=== PATIENT | female | born 1995 ===

== ENCOUNTER 2018-01-08 23:35 | Emergency (ER) | payer SELFPAY ==
--- NOTE | 2018-01-09 00:12 | C.PDOC ---
History Of Present Illness 22 year old female presents to the ED c/o pain to the back of her head, lower back, right arm and right leg s/o falling at a [employer]. Patient states he was helped up by a friend and went home after she fell, tried taking Advil and Tyleno, without relief. Patient states pain was persistent which prompted the visit to the ED. Patient denies LOC, visual changes, nausea, vomit, dizziness, weakness, numbness, bowel incontinence, saddle anesthesia. - HPI Time Seen by Provider: 01/08/18 23:50 Chief Complaint (Nursing): Trauma History Per: Patient History/Exam Limitations: no limitations Onset/Duration Of Symptoms: Hrs Injury Occurred (Timing): Just Before Arrival Location Of Injury: Right: Arm, Leg, Posterior: Arm, Back, Head, Leg Recent travel outside of the [place]: No Additional History Per: Patient - Fall Fall:Prior To Injury: Slipped Past Medical History Reviewed: Historical Data, Nursing Documentation, Vital Signs Vital Signs: Last Vital Signs Temp 98.5 F 01/08/18 23:42 Pulse 84 01/08/18 23:42 Resp 16 01/08/18 23:42 BP 114/79 01/08/18 23:42 Pulse Ox 97 01/08/18 23:42 - Medical History PMH: No Chronic Diseases Surgical History: No Surg Hx Family History: States: Unknown Family Hx - Social History Hx Alcohol Use: No Hx Substance Use: No - Immunization History Hx Tetanus Toxoid Vaccination: Yes Hx Influenza Vaccination: Yes Hx Pneumococcal Vaccination: No Review Of Systems Constitutional: Negative for: Fever, Chills Eyes: Negative for: Vision Change Cardiovascular: Negative for: Chest Pain Respiratory: Negative for: Cough Gastrointestinal: Negative for: Nausea, Vomiting, Abdominal Pain, Diarrhea Genitourinary: Negative for: Incontinence Musculoskeletal: Positive for: Arm Pain, Back Pain, Leg Pain Neurological: Positive for: Headache. Negative for: Weakness, Numbness, Dizziness Physical Exam - Physical Exam Appears: Non-toxic, No Acute Distress Skin: Normal Color, Warm, Dry Head: Atraumatic, Normacephalic, Tenderness (occipital area) Eye(s): bilateral: Normal Inspection, PERRL, EOMI Oral Mucosa: Moist Neck: Normal ROM, Supple Chest: Symmetrical Cardiovascular: Rhythm Regular Respiratory: Normal Breath Sounds, No Rales, No Rhonchi, No Wheezing Gastrointestinal/Abdominal: Soft, No Tenderness, No Guarding, No Rebound Back: Muscle Spasm (lower back) Extremity: Normal ROM (able supinate right arm, moves all other extemities), Tenderness (right elbow, right lower leg), Capillary Refill (< 2 seconds), No Deformity, No Swelling Pulses: Left Dorsalis Pedis: Normal, Right Dorsalis Pedis: Normal Neurological/Psych: Oriented x3, Normal Speech, Normal Cognition, Normal Motor, Normal Sensation Gait: Steady ED Course And Treatment O2 Sat by Pulse Oximetry: 97 (ON RA) Pulse Ox Interpretation: Normal - Other Rad LS spine X-Ray X-Ray: Interpreted by Me, Viewed By Me Interpretation: No fracture or dislocation Right Tib/Fib X-Ray X-Ray: Interpreted by Me, Viewed By Me Interpretation: No fracture or dislocation Right elbow X-Ray X-Ray: Interpreted by Me, Viewed By Me Interpretation: No fracture or dislocation - CT Scan/US head Other Rad Studies (CT/US): Read By Radiologist ([facility] RAD: NO ACUTE FINDINGS) CT/US Interpretation: EXAM: CT Head without Intravenous Contrast. CLINICAL HISTORY: Fell. TECHNIQUE: Axial computed tomography images of the head/brain without intravenous contrast. 923 mGy-cm. COMPARISON: None provided. FINDINGS: BRAIN. No acute intraparenchymal hemorrhage. No mass lesion. No CT evidence for acute territorial infarct. No midline shift or extra-axial collections. VENTRICLES: No hydrocephalus. ORBITS: The orbits are unremarkable. SINUSES AND MASTOIDS: The paranasal sinuses and mastoid air cells are clear. BONES: No fracture. SOFT TISSUES: Unremarkable. IMPRESSION: No acute intracranial abnormality. . Electronically signed on Jan 09, 2018 3:31:37 AM EST by: Misale Madrid M.D., WIL Certified By ABR & [facility]. Fellowship Trained MRI and CT Specialist Reevaluation Time: 02:12 Reassessment Condition: Improved Medical Decision Making Medical Decision Making: Plan: * CT head * Labs * UA * Flexeril 10 mg PO * Tylenol 325 mg PO * Elbow X-Ray * Tib/Fib X-Ray Patient took Tylenol and Advil at home, still complaining of pain. Patient was offered stronger pain medications narcotics, but patient states she is afraid becasue she has never taken them before and prefers to keep trying Tylenol for pain. Patient requesting imaging as well. Disposition Counseled Patient/Family Regarding: Studies Performed, Diagnosis, Need For Followup, Rx Given - Disposition Referrals: YOUR,PMD [Other] Disposition: HOME/ ROUTINE Disposition Time: 02:12 Condition: IMPROVED Prescriptions: Acetaminophen/Cod NO 4 [Tylenol/Cod 300 mg-60 mg] 1 tab PO Q4 PRN #20 tab PRN Reason: Pain, Moderate (4-7) Ibuprofen [Motrin] 600 mg PO Q6 #30 tab Instructions: Lumbar Muscle Strain (DC), Contusion (DC), Minor Head Injury (DC) Forms: [employer] (Greek) - Clinical Impression Clinical Impression: Back sprain, Elbow contusion, Contusion of leg, Minor head injury - Scribe Statement The provider has reviewed the documentation as recorded by the Scribe David Milan All medical record entries made by the Scribe were at my direction and personally dictated by me. I have reviewed the chart and agree that the record accurately reflects my personal performance of the history, physical exam, medical decision making, and the department course for this patient. I have also personally directed, reviewed, and agree with the discharge instructions and disposition.
[2018-01-09 02:27] VITALS: BP 110/70; PULSE 74; RESP 14; TEMP 98
[2018-01-09 03:57] VITALS: O2SAT 97
--- NOTE | 2018-01-09 10:38 | CT ---
Date of service: 01/09/2018 PROCEDURE: CT HEAD WITHOUT CONTRAST. HISTORY: trauma COMPARISON: None available. TECHNIQUE: Axial computed tomography images were obtained through the head/brain without intravenous contrast. Radiation dose: Total exam DLP = 923.8 mGy-cm. This CT exam was performed using one or more of the following dose reduction techniques: Automated exposure control, adjustment of the mA and/or kV according to patient size, and/or use of iterative reconstruction technique. FINDINGS: HEMORRHAGE: No intracranial hemorrhage. BRAIN: No mass effect or edema. No atrophy or chronic microvascular ischemic changes. VENTRICLES: Unremarkable. No hydrocephalus. CALVARIUM: Unremarkable. PARANASAL SINUSES: Unremarkable as visualized. No significant inflammatory changes. MASTOID AIR CELLS: Unremarkable as visualized. No inflammatory changes. OTHER FINDINGS: None. IMPRESSION: No acute intracranial hemorrhage.
--- NOTE | 2018-01-09 14:07 | RAD ---
Date of service: 01/09/2018 PROCEDURE: Radiographs of the right elbow. HISTORY: trauma COMPARISON: No prior. FINDINGS: BONES: Normal. No fracture. JOINTS: Normal. No osteoarthritis. SOFT TISSUES: Normal. JOINT EFFUSION: None. OTHER FINDINGS: None. IMPRESSION: Unremarkable radiographs of the right elbow.
--- NOTE | 2018-01-09 14:08 | RAD ---
Date of service: 01/09/2018 PROCEDURE: Radiographs of the right tibia and fibula. HISTORY: trauma COMPARISON: None available TECHNIQUE: Frontal and lateral views obtained. FINDINGS: BONES: No fracture or destructive lesion. JOINT SPACES: Unremarkable. OTHER FINDINGS: None. IMPRESSION: Unremarkable radiographs of the right tibia and fibula.
--- NOTE | 2018-01-09 14:11 | RAD ---
Date of service: 01/09/2018 PROCEDURE: Radiographs of the Lumbar Spine. HISTORY: trauma COMPARISON: No prior. FINDINGS: BONES: There is an anterior wedge compression deformity of the T11 segment that most likely is chronic PA given some mild degenerative changes at the T11-T12 as well as the T10-T11 and T9-T10 disc space levels however clinical correlation suggested. There is also minimal chronic appearing anterior wedging of the T10 segment Mild levoscoliosis centered at the thoracolumbar junction DISC SPACES: Lumbar vertebral disc space heights maintained... OTHER FINDINGS: None. IMPRESSION: There is an anterior wedge compression deformity of the T11 segment that most likely is chronic PA given some mild degenerative changes at the T11-T12 as well as the T10-T11 and T9-T10 disc space levels however clinical correlation suggested. There is also minimal chronic appearing anterior wedging of the T10 segment. Clinical correlation recommended Mild levoscoliosis centered at the thoracolumbar junction
== END 2018-01-09 02:27 | disposition home or self-care (01) ==
LOC: C.ER 23:35
DX: S09.90XA Unspecified injury of head, initial encounter (principal); S33.5XXA Sprain of ligaments of lumbar spine, initial encounter; S50.01XA Contusion of right elbow, initial encounter; S80.11XA Contusion of right lower leg, initial encounter; W18.30XA Fall on same level, unspecified, initial encounter; Y92.512 Supermarket, store or market as the place of occurrence of the external cause